=== PATIENT | male | born 1990 | race Two or more races ===

== ENCOUNTER 2023-09-21 14:40 | Emergency (ER) | payer MEDICAID, OTHER ==
[~2023-09-21] VITALS: Ht 180.3 cm; Wt 98.0 kg
[2023-09-21 15:29] VITALS: BP 136/85; TEMP 98.6
[2023-09-21] MEDS ORDERED: IBUP-1957 PO (16:29)
[2023-09-21] MEDS ORDERED: ACET-2605 PO (16:29)
[2023-09-21] MEDS ORDERED: LIDOCAINE 5% (PATCH) 1 EA PATCH TP ONE (16:30)
[2023-09-21] MEDS: LIDOCAINE 5% (PATCH) 1 EA PATCH TP ONE (16:36)
[2023-09-21 16:41] VITALS: O2SAT 100
== END 2023-09-21 16:43 | disposition home or self-care (01) ==
LOC: ER 14:40
DX: M25.561 Pain in right knee (principal); Z79.899 Other long term (current) drug therapy